=== PATIENT | male | born 1975 ===

== ENCOUNTER 2018-11-03 10:12 | Emergency (ER) | payer SELFPAY ==
[2018-11-03 10:26] VITALS: BP 125/70; PULSE 101; RESP 21; TEMP 98.4; O2SAT 99
[2018-11-03] MEDS ORDERED: Naproxen 550 mg Tab PO STA (11:48)
--- NOTE | 2018-11-03 11:51 | C.PDOC ---
History Of Present Illness 43 y/o male presents to the ER complaining of left shoulder pain which has been present for the past 2 days. Patient states that the pain began after he lifted heavy object. Patient denies having direct trauma, falls,injuries, weakness, numbness,CP, and SOB. Time Seen by Provider: 11/03/18 10:32 Chief Complaint (Nursing): Upper Extremity Problem/Injury History Per: Patient History/Exam Limitations: no limitations Onset/Duration Of Symptoms: Days Current Symptoms Are (Timing): Still Present Severity: Moderate Past Medical History Reviewed: Historical Data, Nursing Documentation, Vital Signs Vital Signs: Last Vital Signs Temp 98.4 F 11/03/18 10:23 Pulse 101 H 11/03/18 10:23 Resp 21 11/03/18 10:23 BP 125/70 11/03/18 10:23 Pulse Ox 99 11/03/18 10:23 - Medical History PMH: Bipolar Disorder, Schizophrenia Surgical History: No Surg Hx Family History: States: No Known Family Hx - Social History Hx Alcohol Use: No Hx Substance Use: Yes (6AM) - Immunization History Hx Tetanus Toxoid Vaccination: No Hx Influenza Vaccination: No Review Of Systems Except As Marked, All Systems Reviewed And Found Negative. Cardiovascular: Negative for: Chest Pain Respiratory: Negative for: Shortness of Breath Musculoskeletal: Positive for: Shoulder Pain (left shoulder pain) Neurological: Negative for: Weakness, Numbness Physical Exam - Physical Exam Appears: Non-toxic, No Acute Distress Skin: Normal Color, Warm, Dry, Other (no erythema in left shoulder) Head: Atraumatic, Normacephalic Eye(s): bilateral: Normal Inspection Nose: Normal Oral Mucosa: Moist Neck: Supple Chest: Symmetrical, Tenderness (tenderness in pectoralis muscle over left lateral chest wall) Cardiovascular: Rhythm Regular Respiratory: Normal Breath Sounds, No Rales, No Rhonchi, No Wheezing Extremity: No Normal ROM (limited ROM in left shoulder secondary to pain), Tenderness (tenderness over left shoulder), No Deformity, No Swelling Neurological/Psych: Oriented x3, Normal Speech, Normal Motor, Normal Sensation (left arm and hand) ED Course And Treatment O2 Sat by Pulse Oximetry: 99 (RA) Pulse Ox Interpretation: Normal - Other Rad X-Ray-Left Shoulder X-Ray: Viewed By Me, Read By Radiologist Interpretation: PROCEDURE: Radiographs of the Left Shoulder. HISTORY: LFT SHOULDER PAIN. COMPARISON: None available. FINDINGS: BONES: No acute displaced fracture. The distal clavicle and underlying ribs appear intact. JOINTS: No acute dislocation. SOFT TISSUES: Soft tissues appear unremarkable. No evidence of radiopaque foreign body. IMPRESSION: No acute displaced fracture or dislocation evident. If symptoms persist or if there is continued clinical concern, x-ray follow-up in 7-10 days should be considered. Progress Note: X-Ray-Left Shoulder ordered and reviewed. Patient treated with Naporxen PO and Flexeril PO. Sling has been applied by vehicle modification technician. Patient has been discharged and instructed to follow up with orthopedist in 1 week. Disposition Counseled Patient/Family Regarding: Diagnosis, Need For Followup, Rx Given - Disposition Referrals: Shine Herrera III, MD [Staff Provider] - Disposition: HOME/ ROUTINE Disposition Time: 12:00 Condition: STABLE Additional Instructions: FOLLOW UP WITH ORTHOPEDICS WITHIN 1 WEEK USE MEDICATIONS DIRECTED/NEEDED RETURN TO ER IF SYMPTOMS WORSEN Prescriptions: Cyclobenzaprine [Flexeril] 10 mg PO BID PRN #15 tab PRN Reason: Muscle Spasm Naproxen 375 mg PO BID PRN #20 tablet PRN Reason: pain Instructions: Muscle Spasms (DC), Shoulder Sprain (DC) Forms: [facility] [employer]) (French) Print Language: SAMI - Clinical Impression Clinical Impression: Sprain of left shoulder, Pectoralis muscle strain - Scribe Statement The provider has reviewed the documentation as recorded by the Cyndy Payne Provider Attestation: All medical record entries made by the Ravinderibarthur were at my direction and personally dictated by me. I have reviewed the chart and agree that the record accurately reflects my personal performance of the history, physical exam, med [facility] decision making, and the department course for this patient. I have also personally directed, reviewed, and agree with the discharge instructions and disposition.
[2018-11-03] MEDS ORDERED: Naproxen 550 mg Tab PO ONE (12:12)
== END 2018-11-03 12:12 | disposition home or self-care (01) ==
LOC: C.ER 10:12
DX: S43.402A Unspecified sprain of left shoulder joint, initial encounter (principal); X50.0XXA Overexertion from strenuous movement or load, initial encounter; S46.812A Strain of other muscles, fascia and tendons at shoulder and upper arm level, left arm, initial encounter